=== PATIENT | female | born 1995 | race Caucasian/White ===

== ENCOUNTER 2016-06-05 20:49 | Emergency (ER) | payer BC ==
[2016-06-05 21:09] VITALS: BP 150/104; BMI 42.9
[2016-06-05] MEDS ORDERED: PHENERGAN INJ 25 MG IM ONE (21:44)
[2016-06-05] MEDS ORDERED: TORADOL 60 MG VIAL IM ONE (21:44)
[2016-06-05] MEDS ORDERED: PHENERGAN INJ 25 MG ONE (21:48)
[2016-06-05] MEDS ORDERED: TORADOL 60 MG VIAL ONE (21:48)
--- NOTE | 2016-06-05 21:49 | DR.GENAD ---
HPI - PCP Primary Care Physician: Jay OLIVARES - Complaint/Symptoms Chief Complaint Doctors Comments: Patient complains of RUQ pain and lower back pain with episode vomiting onset while she was setting. States the pain is sharp and hurst in both sides but the right side is worst with the pain being 10 of 10. States she had right hip surgery recently in [place] and has been wearing a brace since. She denies hematuria,, fever, chills, or diarrhea. She took [place] 7.5 today but it was her last pill. Chief Complaint:: RIGHT SIDE BACK PAIN RADIATING TO RIGHT UPPER QUADRANT OF ABDOMEN. THROWING UP LOW GRADE FEVER OF 99.8 Self Treatment fo Chief Complaint: NORCO AROUND 8 PM, N[place]ROSEN ABOUT 6:30 PM - Nurses notes reviewed Nurses Notes Review: Yes - Source History Provided: Patient, Parent - Mode of Arrival Mode of Arrival: Ambulatory - Timing Onset of Chief Complaint: 06/05/16 Came on: Gradually - Duration Duration: Constant How lon Duration: Hours - Location Location: right CVA and RUQ pain with right lower abdominal pain - Severity Severity: Moderate, Severe - Modifying Factors Worsens:: movement Improves:: nothing PMH - PMH Past Medical History: No Past Surgical History: Yes Past Surgical History Comment: 7 HIP SURGERIES - Family History History of Family Medical Conditions: Yes Family Medical History: Diabetes Mellitus, [place], Heart Failure, Sudden Cardiac , Hypertension - Social History Does patient currently use any type of tobacco product: No Have you used tobacco products in the last 12 months: No Type of Tobacco Use: Cigarettes Does any household member use tobacco: No Alcohol Use: None Do you use any recreational Drugs:: No Lives With: Dad, Mom Lives Where: Home - infectious screening In the last 2 months have you had wt loss of >10#?: NO Have you had fever, night sweats or hemotysis?: No Have you traveled outside the country in the last 6 months?: No Isolation: Standard ROS - Review of Systems Constitutional: No Symptoms Reported, Loss of Appetite. negative: See HPI, Chills, Diaphoresis, Fever, Malaise, Weakness, Irritable, Fatigue, Other Eyes: No Symptoms Reported ENTM: No Symptoms Reported, Nose Congestion. negative: See HPI, Ear Pain, Ear Discharge, Pulling on Ears, Hearing Loss, Nose Pain, Nose Discharge, Epistaxis, Mouth Pain, Mouth Swelling, Loose Teeth, Drooling, Throat Pain, Throat Swelling , Ear Foreign Body Respiratoy: No Symptoms Reported Cardiovascular: No Symptoms Reported. negative: See HPI, Chest Pain, Edema, Palpitations, Syncope, Cyanosis, Skin Mottling, Other Gastrointestinal/Abdominal: No Symptoms Reported, Abdominal Pain, Constipation, Vomiting, Food Intolerance Genitourinary: No Symptoms Reported, See HPI ( ). negative: Discharge, Dysuria, Frequency, Hematuria, Pain, Bleeding, Other Neurological: No Symptoms Reported, Problems Walking (right hip gabi) Musculoskeletal: No Symptoms Reported Integumentary: No Symptoms Reported Hematologic/Lymphatic: No Symptoms Reported. negative: See HPI, Anemia, Blood Clots, Easy Bleeding, Easy Bruising, Swollen Glands, Lymphadenopathy, Other Endocrine: No Symptoms Reported Psychiatric: No Symptoms Reported PE - Vital Signs Vitals: Temperature 97.6 F Pulse Rate 96 Respiratory Rate 20 Blood Pressure 150/104 O2 Sat by Pulse Oximetry 98 - General Limitations: No Limitations General Appearance: Alert, In Distress (moderate distress) - Head Head Exam: Normal Inspection, Atraumatic, Normocephalic - Eyes Eye exam: Normal Appearance, PERRL, EOMI. negative: Scleral Icterus, Conjunctival Injection, Nystagmus, Miosis, Mydrasis, Periorbital Swelling, Periorbital Tenderness, Other - ENT ENT Exam: Normal Exam, Normal Oropharynx, Normal External Ear Exam, Mucous Membranes Moist, TM's Normal Bilaterally External Ear Exam: Normal External Inspection TM/Canal Exam: Bilateral Normal Nose Exam: Normal Nose Exam Mouth Exam: Normal Inspection Throat Exam: Normal Inspection - Neck Neck Exam: Normal Inspection, Full ROM, Trachea Midline. negative: Tenderness, Meningismus, Lymphadenopathy, Thyromegaly, Other - Chest Chest Inspection: Normal Inspection, Symmetric Chest Wall Rise - Respiratory Respiratory Exam: Normal Lung Sounds Bilat Respiratory Exam: Bilateral Clear to Auscultation - Cardiovascular Cardiovascular Exam: Regular Rate, Normal Rhythm, Normal Heart Sounds - Abdominal Exam Abdominal Exam: Normal Inspection, Normal Bowel Sounds, Soft, Tenderness (RUQ, right CVA; right hypogastric) Abdominal Tenderness: RUQ, Moderate - Extremities Extremities Exam: Normal Inspection, Full ROM, Normal Capillary Refill. negative: Tenderness, Edema, Joint Swelling, Calf Tenderness, Other - Back Back Exam: Normal Inspection, Full ROM, Tenderness, (R) CVA Tenderness - Neurologic Neurological Exam: Alert, Oriented X3, CN II-XII Intact, Normal Gait (gait not tested), Reflexes Normal - Psychiatric Psychiatric Exam: Normal Affect, Normal Mood - Skin Skin Exam: Warm, Dry, Intact, Normal Color Course - Reevaluation 1st: Improved - Education/Counseling Education/Counseling: Patient, Family Educated On: Treatment, Diagnosis, Prognosis, Needs for Follow Up ROR - Labs Reviewed Laboratory Results Reviewed?: Yes (All labs and x-ray results reviewed and discussed with patient and mother) Result Diagrams: 06/05/16 21:50 06/05/16 21:50 Laboratory: WBC 13.7 X10^3/uL (3.6-10.0) H 06/05/16 21:50 RBC 4.74 X10^6/uL (3.5-5.4) 06/05/16 21:50 Hgb 12.6 g/dL (12.0-16.0) 06/05/16 21:50 Hct 38.3 % (36.0-47.0) 06/05/16 21:50 MCV 80.7 fL (80.0-100.0) 06/05/16 21:50 MCH 26.6 pg (27.0-34.0) L 06/05/16 21:50 MCHC 33.0 g/dL (33.0-35.0) 06/05/16 21:50 RDW 13.6 % (11.6-16.5) 06/05/16 21:50 Plt Count 383 X10^3/uL (150.0-450.0) 06/05/16 21:50 MPV 8.3 fL (7.4-11.0) 06/05/16 21:50 Neut % 79.9 % (42.0-75.0) H 06/05/16 21:50 Lymph % 13.9 % (21.0-51.0) L 06/05/16 21:50 [place] % 3.9 % (0.0-13.0) 06/05/16 21:50 Eos % 1.7 % (0.9-2.9) 06/05/16 21:50 Baso % 0.6 % (0.2-1.0) 06/05/16 21:50 Neut # 10.9 x10^3/uL (2.2-4.8) H 06/05/16 21:50 Lymph # 1.9 X10^3/uL (1.3-2.9) 06/05/16 21:50 [place] # 0.5 x10^3/uL (0.3-0.8) 06/05/16 21:50 Eos # 0.2 x10^3/uL (0.0-0.2) 06/05/16 21:50 Baso # 0.1 X10^3/uL (0.0-0.1) 06/05/16 21:50 Absolute Nucleated RBC 0.0 /100WBC 06/05/16 21:50 Sodium 142 mmol/L (136-145) 06/05/16 21:50 Corrected Sodium TNP 06/05/16 21:50 Potassium 4.2 mmol/L (3.5-5.1) 06/05/16 21:50 Chloride 105 mmol/L (98-107) 06/05/16 21:50 Carbon Dioxide 27.8 mmol/L (21-32) 06/05/16 21:50 BUN 15 mg/dL (7-18) 06/05/16 21:50 Creatinine 0.86 mg/dL (0.55-1.02) 06/05/16 21:50 Est GFR (MDRD) Af Amer > 60 (>60) 06/05/16 21:50 Est GFR (MDRD) Non-Af > 60 (>60) 06/05/16 21:50 Glucose 102 mg/dL (65-99) H 06/05/16 21:50 Calcium 9.2 mg/dL (8.5-10.1) 06/05/16 21:50 Corrected Calcium TNP 06/05/16 21:50 Total Bilirubin 0.20 mg/dL (0.2-1.0) 06/05/16 21:50 AST 16 Units/L (15-37) 06/05/16 21:50 ALT 29 Units/L (12-78) 06/05/16 21:50 Alkaline Phosphatase 86 Units/L (46-116) 06/05/16 21:50 Total Protein 8.2 g/dL (6.4-8.2) 06/05/16 21:50 Albumin 3.8 g/dL (3.4-5.0) 06/05/16 21:50 Globulin 4.4 g/dL (2.5-4.5) 06/05/16 21:50 Albumin/Globulin Ratio 0.9 Ratio (1.1-2.1) L 06/05/16 21:50 Amylase 64 Units/L (25-115) 06/05/16 21:50 Lipase 181 Units/L (73-393) 06/05/16 21:50 HCG, Qual Negative <10 mIU/mL 06/05/16 21:50 Specimen Type Clean catch urine 06/06/16 00:15 Urine Color Yellow (YELLOW) 06/06/16 00:15 Urine Appearance Cloudy (CLEAR) 06/06/16 00:15 Urine pH 6.0 (5.0 - 8.0) 06/06/16 00:15 Ur Specific [place] 1.030 (1.000-1.030) 06/06/16 00:15 Urine Protein 2+ (NEGATIVE) 06/06/16 00:15 Urine Glucose (UA) Negative (NEGATIVE) 06/06/16 00:15 Urine Ketones Negative (NEGATIVE) 06/06/16 00:15 Urine Occult Blood 5+ (NEGATIVE) 06/06/16 00:15 Urine Nitrite Negative (NEGATIVE) 06/06/16 00:15 Urine Bilirubin Negative (NEGATIVE) 06/06/16 00:15 Urine Urobilinogen 1+ (NORMAL) 06/06/16 00:15 Ur Leukocyte Esterase 1+ (NEGATIVE) 06/06/16 00:15 Urine RBC 10-15 /HPF (NEGATIVE) 06/06/16 00:15 Urine WBC 2-6 /HPF (NEGATIVE) 06/06/16 00:15 Ur Squamous Epith Cells Rare /HPF (NEGATIVE) 06/06/16 00:15 Amorphous Sediment 1+ /HPF (NEGATIVE) 06/06/16 00:15 Urine Bacteria 1+ /HPF (NEGATIVE) 06/06/16 00:15 Ur Culture Indicated? Yes/culture set up 06/06/16 00:15 - XRAY XRAY Interpreted by: Radiologist (CT abdomen/pelvis: No acuate inflammatory process identified. 1.3cm left renal cyst) - Diagnosis Discharge Problem: Renal cyst, acquired, left Abdominal pain Qualifiers: Abdominal location: right upper quadrant Qualified Code(s): R10.11 - Right upper quadrant pain Urinary tract infection Qualifiers: Urinary tract infection type: acute cystitis Hematuria presence: with hematuria Qualified Code(s): N30.01 - Acute cystitis with hematuria Vomiting Qualifiers: Vomiting type: unspecified - Discharge Plan Disposition: HOME, SELF-CARE Condition: Stable Prescriptions: Acetaminophen W/ Codeine [Tylenol w/Codeine #4 (300 mg/60 mg)] 1 tab PO Q4-6H PRN #28 tab PRN Reason: Pain Levofloxacin [LEVAQUIN TAB 500 MG *] 500 mg PO Q24H #7 tab Ondansetron [Zofran Odt] 4 mg PO Q8H PRN #12 tab PRN Reason: Nausea/Vomiting - Follow ups/Referrals Follow ups/Referrals: JOSE ARMANDO OLIVARES [Primary Care Provider] - 3 days - Instructions Instructions: Urinary Tract Infection, Abdominal Pain, Adult, [id number], Urinary Tract Infection, [id number], Nausea and Vomiting, Adult, [id number]
[2016-06-05 22:08] LABS: BASOPHILS # (AUTO) 0.1 X10^3/uL (0.0-0.1); BASOPHILS % (AUTO) 0.6 % (0.2-1.0); EOSINOPHILS # (AUTO) 0.2 x10^3/uL (0.0-0.2); EOSINOPHILS % (AUTO) 1.7 % (0.9-2.9); HEMATOCRIT 38.3 % (36.0-47.0); HEMOGLOBIN 12.6 g/dL (12.0-16.0); LYMPHOCYTES # (AUTO) 1.9 X10^3/uL (1.3-2.9); LYMPHOCYTES % (AUTO) 13.9 % (21.0-51.0); MEAN CORPUSCULAR HEMOGLOBIN 26.6 pg (27.0-34.0); MEAN CORPUSCULAR VOLUME 80.7 fL (80.0-100.0); MEAN PLATELET VOLUME 8.3 fL (7.4-11.0); MONOCYTES # (AUTO) 0.5 x10^3/uL (0.3-0.8); MONOCYTES % (AUTO) 3.9 % (0.0-13.0); NEUTROPHILS # (AUTO) 10.9 x10^3/uL (2.2-4.8); NEUTROPHILS % (AUTO) 79.9 % (42.0-75.0); PLATELET COUNT 383 X10^3/uL (150.0-450.0); RED BLOOD COUNT 4.74 X10^6/uL (3.5-5.4); RED CELL DISTRIBUTION WIDTH 13.6 % (11.6-16.5); WHITE BLOOD COUNT 13.7 X10^3/uL (3.6-10.0)
[2016-06-05 22:16] LABS: SERUM PREGNANCY TEST, QUAL NEGATIVE <10 mIU/mL
[2016-06-05 22:19] LABS: ALANINE AMINOTRANSFERASE 29 Units/L (12-78); ALBUMIN 3.8 g/dL (3.4-5.0); ALKALINE PHOSPHATASE 86 Units/L (46-116); AMYLASE 64 Units/L (25-115); ASPARTATE AMINO TRANSFERASE 16 Units/L (15-37); BLOOD UREA NITROGEN 15 mg/dL (7-18); CALCIUM 9.2 mg/dL (8.5-10.1); CARBON DIOXIDE 27.8 mmol/L (21-32); CHLORIDE 105 mmol/L (98-107); CREATININE 0.86 mg/dL (0.55-1.02); GLUCOSE 102 mg/dL (65-99); LIPASE 181 Units/L (73-393); SODIUM 142 mmol/L (136-145); TOTAL PROTEIN 8.2 g/dL (6.4-8.2); eGFR BLACK RACES > 60 (>60); eGFR NON BLACK RACES > 60 (>60)
--- NOTE | 2016-06-06 00:03 | CT ---
CT abdomen and pelvis without contrast Indication: Right upper quadrant pain with vomiting Comparison: None available Technique: Multiple axial images of the abdomen and pelvis were obtained from the lung bases to the pubic symph ysis without the administration of IV contrast. Coronal and sagittal images were also provided. Radiation dose reduction techniques were performed utilizing adjustment for MA/kVP based on patient body size. Findings: The visualized portions of the lung bases are unremarkable. The bony structures are grossly intact. Given the limitations of lack of IV contrast administration the liver, gallbladder, spleen, pancreas , and adrenal glands are unremarkable in their CT appearance. No evidence of stone within either kidney or ureter. No hydronephrosis is identified. The there is a small round height lesion within the upper pole left kidney measuring 1.3 cm which has [place]oun[place] a ttenuation most consistent with a cyst. No bowel wall thickening or bowel dilatation is present. The colon and rectum are unremarkable. Th e urinary bladder is grossly unremarkable. The appendix is surgically absent. No pelvic mass. Small bilateral adnexal cyst are noted. No mesenteric lymphadenopathy or stranding can be observed. No free fluid or free air is seen withi n the abdomen. IMPRESSION: 1. No acute inflammatory process within the abdomen or pelvis. Reported By:
[2016-06-06 00:30] LABS: BILIRUBIN,URINE NEGATIVE (NEGATIVE); BLOOD/HEMOGLOBIN,URINE 5+ (NEGATIVE); GLUCOSE, URINE NEGATIVE (NEGATIVE); KETONES,URINE NEGATIVE (NEGATIVE); LEUKOCYTE ESTERASE ,URINE 1+ (NEGATIVE); NITRITES,URINE NEGATIVE (NEGATIVE); PROTEIN,URINE 2+ (NEGATIVE); UROBILINOGEN,URINE 1+ (NORMAL)
[2016-06-06 00:54] LABS: APPEARANCE,URINE CLOUDY (CLEAR); COLOR,URINE YELLOW (YELLOW)
[2016-06-06 00:55] LABS: AMORPHOUS SEDIMENT,UR 1+ /HPF (NEGATIVE); BACTERIA,URINE 1+ /HPF (NEGATIVE); SQUAMOUS EPITHELIAL CELL,UR RARE /HPF (NEGATIVE)
[2016-06-06] MEDS ORDERED: LEVAQUIN TAB 500 MG PO STA (00:59)
[2016-06-06] MEDS ORDERED: LEVAQUIN TAB 500 MG ONE (01:13)
== END 2016-06-06 01:30 | disposition home or self-care (01) ==
LOC: ER 20:49
DX: N28.1 Cyst of kidney, acquired (principal); R10.11 Right upper quadrant pain; N30.01 Acute cystitis with hematuria
CPT/HCPCS: 36415; 74176; 80053; 81001; 82150; 83690; 84703; 85025; 87086; 96372; 99283; J1885; J2550

== ENCOUNTER 2017-04-11 08:25 | Emergency (ER) | payer BC ==
[2017-04-11 08:38] VITALS: BP 169/95; BMI 42.9
--- NOTE | 2017-04-11 09:35 | DR.GENAD ---
HPI - PCP Primary Care Physician: MARSHALL - Complaint/Symptoms Chief Complaint:: PT. C/O C/C/C, CHEST CONGESTION, HEADACHE, SORE THROAT, CHILLS , BODY ACHES. PT. BEGAN GETTING SICK ON TUESDAY AND WENT TO THE DOCTOR AND REC' D SOME INJECTIONS AND WAS PLACED ON AMOXICILLIN. Self Treatment fo Chief Complaint: No improvement with Im abx, steroids, amox Rx. Fever to 101. Pt with sibling who developed same symptoms 3 days ago - Source History Provided: Patient - Mode of Arrival Mode of Arrival: Ambulatory - Timing Onset of Chief Complaint: 04/07/17 PMH - PMH Past Medical History: Yes Past Medical History Comment: SCOLOSIS Past Surgical History: Yes Surgical History: Other Past Surgical History Comment: MULTIPLE HIG SURGERIES - Family History History of Family Medical Conditions: No Family Medical History: Diabetes Mellitus, [place], Heart Failure, Sudden Cardiac , Hypertension - Social History Does patient currently use any type of tobacco product: No Have you used tobacco products in the last 12 months: No Type of Tobacco Use: None Does any household member use tobacco: No Alcohol Use: None Do you use any recreational Drugs:: No Lives With: Dad, Mom Lives Where: Home - infectious screening In the last 2 months have you had wt loss of >10#?: NO Have you had fever, night sweats or hemotysis?: No Have you traveled outside the country in the last 6 months?: No Isolation: Standard ROS - Review of Systems Constitutional: See HPI, Chills, Fever, Malaise, Weakness ENTM: Nose Congestion. negative: Throat Pain Respiratoy: See HPI, Non-Productive Cough Gastrointestinal/Abdominal: Vomiting. negative: Abdominal Pain Neurological: No Symptoms Reported, Headache Musculoskeletal: Joint Pain, Muscle Pain PE - Vital Signs Vitals: Temperature 97.6 F Pulse Rate 93 Respiratory Rate 18 Blood Pressure 169/95 O2 Sat by Pulse Oximetry 98 - General Limitations: No Limitations General Appearance: Alert, In No Apparent Distress - Head Head Exam: Normal Inspection - Eyes Eye exam: Normal Appearance - ENT ENT Exam: Normal Oropharynx, Normal External Ear Exam, Mucous Membranes Moist External Ear Exam: Normal External Inspection Throat Exam: Normal Inspection. negative: Tonsillar Erythema, Tonsillar Exudate - Neck Neck Exam: Normal Inspection, Full ROM, Trachea Midline - Chest Chest Inspection: Symmetric Chest Wall Rise - Respiratory Respiratory Exam: Normal Lung Sounds Bilat. negative: Accessory Muscle Use, Respiratory Distress, Stridor Respiratory Exam: Bilateral Clear to Auscultation - Cardiovascular Cardiovascular Exam: Regular Rate, Normal Rhythm, Normal Heart Sounds - Abdominal Exam Abdominal Exam: Normal Inspection, Normal Bowel Sounds, Soft - Extremities Extremities Exam: Normal Inspection - Back Back Exam: negative: (R) CVA Tenderness, (L) CVA Tenderness - Neurologic Neurological Exam: Alert, Oriented X3 - Psychiatric Psychiatric Exam: Normal Affect, Normal Mood - Skin Skin Exam: Warm, Dry. negative: Rash ROR - Labs Reviewed Laboratory Results Reviewed?: Yes Result Diagrams: 04/11/17 10:50 04/11/17 10:50 Laboratory: WBC 6.2 X10^3/uL (3.6-10.0) 04/11/17 10:50 RBC 4.49 X10^6/uL (3.5-5.4) 04/11/17 10:50 Hgb 11.7 g/dL (12.0-16.0) L 04/11/17 10:50 Hct 34.8 % (36.0-47.0) L 04/11/17 10:50 MCV 77.6 fL (80.0-100.0) L 04/11/17 10:50 MCH 26.0 pg (27.0-34.0) L 04/11/17 10:50 MCHC 33.5 g/dL (33.0-35.0) 04/11/17 10:50 RDW 14.3 % (11.6-16.5) 04/11/17 10:50 Plt Count 332 X10^3/uL (150.0-450.0) 04/11/17 10:50 MPV 8.2 fL (7.4-11.0) 04/11/17 10:50 Neut % 54.9 % (42.0-75.0) 04/11/17 10:50 Lymph % 34.0 % (21.0-51.0) 04/11/17 10:50 [place] % 7.8 % (0.0-13.0) 04/11/17 10:50 Eos % 3.1 % (0.9-2.9) H 04/11/17 10:50 Baso % 0.2 % (0.2-1.0) 04/11/17 10:50 Neut # 3.4 x10^3/uL (2.2-4.8) 04/11/17 10:50 Lymph # 2.1 X10^3/uL (1.3-2.9) 04/11/17 10:50 [place] # 0.5 x10^3/uL (0.3-0.8) 04/11/17 10:50 Eos # 0.2 x10^3/uL (0.0-0.2) 04/11/17 10:50 Baso # 0.0 X10^3/uL (0.0-0.1) 04/11/17 10:50 Absolute Nucleated RBC 0.0 /100WBC 04/11/17 10:50 Sodium 143 mmol/L (136-145) 04/11/17 10:50 Corrected Sodium TNP 04/11/17 10:50 Potassium 4.2 mmol/L (3.5-5.1) 04/11/17 10:50 Chloride 107 mmol/L (98-107) 04/11/17 10:50 Carbon Dioxide 27.4 mmol/L (21-32) 04/11/17 10:50 BUN 12 mg/dL (7-18) 04/11/17 10:50 Creatinine 0.70 mg/dL (0.55-1.02) 04/11/17 10:50 Est GFR (MDRD) Af Amer > 60 (>60) 04/11/17 10:50 Est GFR (MDRD) Non-Af > 60 (>60) 04/11/17 10:50 Glucose 92 mg/dL (65-99) 04/11/17 10:50 Calcium 8.5 mg/dL (8.5-10.1) 04/11/17 10:50 Corrected Calcium TNP 04/11/17 10:50 Total Bilirubin 0.20 mg/dL (0.2-1.0) 04/11/17 10:50 AST 24 Units/L (15-37) 04/11/17 10:50 ALT 35 Units/L (12-78) 04/11/17 10:50 Alkaline Phosphatase 86 Units/L (46-116) 04/11/17 10:50 Total Protein 7.4 g/dL (6.4-8.2) 04/11/17 10:50 Albumin 3.4 g/dL (3.4-5.0) 04/11/17 10:50 Globulin 4.0 g/dL (2.5-4.5) 04/11/17 10:50 Albumin/Globulin Ratio 0.9 Ratio (1.1-2.1) L 04/11/17 10:50 Influenza Type A (PCR) Negative (NEGATIVE) 04/11/17 08:50 Influenza Type B (PCR) Negative (NEGATIVE) 04/11/17 08:50 - XRAY XRAY Interpreted by: Radiologist XRAY Findings: nothing acute on 2v chest - Diagnosis Discharge Problem: Acute viral syndrome - Discharge Plan Disposition: HOME, SELF-CARE Condition: Stable Prescriptions: Benzonatate [TESSALON PERLES *] 100 mg PO TID PRN #21 cap PRN Reason: Cough Oseltamivir Phosphate [Tamiflu] 75 mg PO BID #10 cap - Follow ups/Referrals Follow ups/Referrals: NFD,None [Primary Care Provider] - 3 days - Instructions Additional Notes - Additional Notes Additional Notes: extended d/w pt and father regarding w/u, probable viral nature of illness. Will Rx Tamiflu at their request and Tessalon
[2017-04-11 11:13] LABS: BASOPHILS % (AUTO) 0.2 % (0.2-1.0); EOSINOPHILS # (AUTO) 0.2 x10^3/uL (0.0-0.2); EOSINOPHILS % (AUTO) 3.1 % (0.9-2.9); HEMATOCRIT 34.8 % (36.0-47.0); HEMOGLOBIN 11.7 g/dL (12.0-16.0); LYMPHOCYTES # (AUTO) 2.1 X10^3/uL (1.3-2.9); MEAN CORPUSCULAR HGB CONC 33.5 g/dL (33.0-35.0); MEAN CORPUSCULAR VOLUME 77.6 fL (80.0-100.0); MEAN PLATELET VOLUME 8.2 fL (7.4-11.0); MONOCYTES # (AUTO) 0.5 x10^3/uL (0.3-0.8); MONOCYTES % (AUTO) 7.8 % (0.0-13.0); NEUTROPHILS # (AUTO) 3.4 x10^3/uL (2.2-4.8); NEUTROPHILS % (AUTO) 54.9 % (42.0-75.0); PLATELET COUNT 332 X10^3/uL (150.0-450.0); RED BLOOD COUNT 4.49 X10^6/uL (3.5-5.4); RED CELL DISTRIBUTION WIDTH 14.3 % (11.6-16.5); WHITE BLOOD COUNT 6.2 X10^3/uL (3.6-10.0)
[2017-04-11 11:15] LABS: ALANINE AMINOTRANSFERASE 35 Units/L (12-78); ALBUMIN 3.4 g/dL (3.4-5.0); ALKALINE PHOSPHATASE 86 Units/L (46-116); ASPARTATE AMINO TRANSFERASE 24 Units/L (15-37); BLOOD UREA NITROGEN 12 mg/dL (7-18); CALCIUM 8.5 mg/dL (8.5-10.1); CARBON DIOXIDE 27.4 mmol/L (21-32); CHLORIDE 107 mmol/L (98-107); SODIUM 143 mmol/L (136-145); TOTAL PROTEIN 7.4 g/dL (6.4-8.2); eGFR BLACK RACES > 60 (>60); eGFR NON BLACK RACES > 60 (>60)
--- NOTE | 2017-04-11 11:18 | RAD ---
HISTORY: Cough, fever Study: PA and lateral views of the chest Comparison: None Findings: No infiltrate, effusion or pneumothorax identified. The cardiac and mediastinal contours are within normal limits. The soft tissues are unremarkable. IMPRESSION: 1. No acute cardiopulmonary abnormality. Reported By:
== END 2017-04-11 11:46 | disposition home or self-care (01) ==
LOC: ER 08:44
DX: R05 Cough (principal); B97.89 Other viral agents as the cause of diseases classified elsewhere
CPT/HCPCS: 36415; 71046; 80053; 85025; 87502; 99282

== ENCOUNTER 2017-05-10 09:25 | Emergency (ER) | payer SELFPAY ==
[2017-05-10 09:31] VITALS: BP 156/70; BMI 44.2
--- NOTE | 2017-05-10 10:12 | DR.GENAD ---
HPI - PCP Primary Care Physician: jose armando connelly - HPI Comment HPI Comment: 2 day hx punctate red bumps on both hands and both feet. Pt states they are painful, wonders if tis hand/foot/mouth disease. No known exposures, no known sick contacts - Complaint/Symptoms Chief Complaint:: patient stated her throat has been sore and she has blisters on her hands and feet that is spreading. - Nurses notes reviewed Nurses Notes Review: Yes - Source History Provided: Patient - Mode of Arrival Mode of Arrival: Ambulatory - Timing Onset of Chief Complaint: 05/08/17 - Duration Duration: Since Onset How lon Duration: Days - Severity Severity: Mild - Other History Other History: no sig PMH PMH - PMH Past Medical History: No (no contributory PMH) Past Surgical History: Yes Surgical History: Appendectomy, Other Past Surgical History Comment: 7 hip surgerys, 3 appendix - Family History History of Family Medical Conditions: Yes Family Medical History: Diabetes Mellitus, [place], Heart Failure, Sudden Cardiac , Hypertension - Social History Does patient currently use any type of tobacco product: No Have you used tobacco products in the last 12 months: No Type of Tobacco Use: None Does any household member use tobacco: No Alcohol Use: None Do you use any recreational Drugs:: No Lives With: Family Lives Where: Home - infectious screening In the last 2 months have you had wt loss of >10#?: NO Have you had fever, night sweats or hemotysis?: No Have you traveled outside the country in the last 6 months?: No Isolation: Standard ROS - Review of Systems Constitutional: Fever (99.1 on arrival here, no measured fevers at home). negative: Chills Eyes: No Symptoms Reported ENTM: negative: Throat Pain (mentioned sore throat in triage but not to me.) Respiratoy: No Symptoms Reported Cardiovascular: No Symptoms Reported Gastrointestinal/Abdominal: No Symptoms Reported Genitourinary: No Symptoms Reported Neurological: No Symptoms Reported Musculoskeletal: No Symptoms Reported Integumentary: Lesions, Rash Hematologic/Lymphatic: No Symptoms Reported Endocrine: No Symptoms Reported Psychiatric: No Symptoms Reported All Other Systems: Reviewed and Negative PE - Vital Signs Vitals: Temperature 99.1 F Pulse Rate 91 Respiratory Rate 18 Blood Pressure 156/70 O2 Sat by Pulse Oximetry 98 - General Limitations: No Limitations General Appearance: Alert, In No Apparent Distress - Head Head Exam: Normal Inspection - Eyes Eye exam: Normal Appearance - ENT ENT Exam: Normal Exam, Normal Oropharynx External Ear Exam: Normal External Inspection Nose Exam: Normal Nose Exam Mouth Exam: Normal Inspection, Other (no lesions seen in oral cavity, pharynx normal ) Throat Exam: Normal Inspection. negative: Tonsillar Erythema, Tonsillomegaly, Tonsillar Exudate, R Peritonsillar Mass, L Peritonsillar Mass - Neck Neck Exam: Normal Inspection - Respiratory Respiratory Exam: Normal Lung Sounds Bilat Respiratory Exam: Bilateral Clear to Auscultation - Cardiovascular Cardiovascular Exam: Regular Rate, Normal Rhythm - Abdominal Exam Abdominal Exam: Normal Inspection, Normal Bowel Sounds, Soft - Extremities Extremities Exam: Normal Inspection, Full ROM - Neurologic Neurological Exam: Alert, Oriented X3 - Psychiatric Psychiatric Exam: Normal Affect - Skin Skin Exam: Rash (few scattered lesions both hands, 1-2mm red raised lesions. Widely spaced. Pt states tender to touch. ) Course - Education/Counseling Education Comments: spoke with pt at length re: hand/foot/mouth disease. Doubtful due to age - Diagnosis Discharge Problem: Rash and nonspecific skin eruption Narrative Support Text: Spoke with pt at length regarding nonspecific skin rash. Suggested she f/u PCP if worsening, suspect viral etiology. Offered toradol as pt has tried ibuprofen with little relief but she declines. She asked re: abx tx but bacterial etiology unlikely I think. Pt invited to return if symptoms persist or worsen. I described skin bx procedure that could be pursued by derm or PCP if this persists but explained I did not have this in the ER . - Discharge Plan Disposition: 01 HOME, SELF-CARE Condition: Stable - Follow ups/Referrals Follow ups/Referrals: JOSE ARMANDO CONNELLY [Primary Care Provider] - 3 days - Instructions Instructions: Rash, [id number] Additional Instructions: VIRAL SKIN RASH
== END 2017-05-10 10:04 | disposition home or self-care (01) ==
LOC: ER 09:41
DX: R21 Rash and other nonspecific skin eruption (principal)
CPT/HCPCS: 99281; 99282